=== PATIENT | female | born 1945 | race Caucasian/White ===

== ENCOUNTER → 2016-07-28 | Outpatient (CLI) | payer OTHER ==
--- NOTE | 2016-07-28 15:55 | CT ---
CT of the Right Hip, Right Knee, and Right Ankle, Without Contrast, With Multiplanar Reconstructions History: M17.9, osteoarthritis right knee, pain. EVANGELINA preop study. Technique: Noncontrast axial computed tomographic images of the hip, knee, and ankle, with multiplan ar reconstructions. CT Dose reduction techniques utilized. Comparison: None. Findings: No significant degenerative changes of the the right hip or right ankle. The right knee demonstrates severe medial tibiofemoral joint space narrowing, with subchondral sclero sis, complete loss of joint space, medial femoral condyle and medial tibial plateau osteophytes. Sma ll lateral femoral condyle and lateral tibial plateau osteophytes, without significant joint space na rrowing laterally. Mild patellofemoral joint space narrowing, with circumferential patellar and troc hlear osteophytes. Impression: Right knee severe osteoarthritis of the medial tibiofemoral compartment.
== END ==
LOC: FIMAGING 14:38
PROVIDERS: ATTEND Orthopaedic Surgery
DX: Z01.818 Encounter for other preprocedural examination (principal); M17.11 Unilateral primary osteoarthritis, right knee

== ENCOUNTER 2016-08-11 05:47 | Observation (INO) | payer OTHER ==
[2016-08-11] MEDS ORDERED: TRANEXAMIC ACID 3,000 MG in NS 50 ML IRR ONE (06:00)
[2016-08-11] MEDS ORDERED: CHLORHEXIDINE GLUC HIBICLENS 118 ML BTL TP ONE (06:00)
[2016-08-11] MEDS ORDERED: FAMOTIDINE 20 MG TAB PO ONE (06:00)
[2016-08-11] MEDS ORDERED: ACETAMINOPHEN 325 MG TAB PO ONE (06:00)
[2016-08-11] MEDS ORDERED: ROPI/epiNEPH/KETOROLAC JOINT COCKTAIL IU ONE (06:00)
[2016-08-11] MEDS ORDERED: CEFAZOLIN 2 GM/DEXTR 100 ML IV ONE (06:00)
[2016-08-11] MEDS ORDERED: DEXAMETHASONE 4 MG/ML VIAL IVP ONE (06:00)
[2016-08-11] MEDS ORDERED: LIDOCAINE 1% 5 ML SDV ONE (06:20)
[2016-08-11] MEDS ORDERED: LIDOCAINE 1% 5 ML SDV ID PRN (06:24)
[2016-08-11] MEDS ORDERED: LR 1,000 ML IV ONE (06:24)
[2016-08-11] MEDS ORDERED: VANCOMYCIN 1 GM VIAL IV ONE (06:31)
[2016-08-11] MEDS ORDERED: TRANEXAMIC ACID 3,000 MG/50 ML BAG IRR ONE (06:31)
[2016-08-11] MEDS ORDERED: SKIN ADHESIVE (DERMABOND) 1 EACH TP ONE (06:31)
[2016-08-11] MEDS ORDERED: MIDAZOLAM 2 MG/2 ML VIAL ONE (07:00)
[2016-08-11] MEDS ORDERED: PROPOFOL/EMULSION 500 MG/50 ML BOTTLE IV ONE (07:03)
[2016-08-11] MEDS ORDERED: fentaNYL 100 MCG/2 ML INJ ONE ×2 (07:03→08:47)
[2016-08-11] MEDS ORDERED: MAGNESIUM HYDROXIDE 30 ML UDCUP PO PRN (07:08)
[2016-08-11] MEDS ORDERED: PHARMACY PAIN CONSULT 1 EA MISC PRN (07:08)
[2016-08-11] MEDS ORDERED: ONDANSETRON 4 MG/2 ML VIAL IVP PRN (07:08)
[2016-08-11] MEDS ORDERED: POLYETHYLENE GLYCOL 3350 17 GM PKT PO PRN (07:08)
[2016-08-11] MEDS ORDERED: PROMETHAZINE HCL 25 MG/ML INJ IVP PRN (07:08)
[2016-08-11] MEDS ORDERED: TEMAZEPAM 15 MG CAP PO PRN (07:08)
[2016-08-11] MEDS ORDERED: DIPHENOXYLATE/ATROPINE LOMOTIL 1 TAB PO PRN (07:08)
[2016-08-11] MEDS ORDERED: CYCLOBENZAPRINE 10 MG TAB PO PRN (07:08)
[2016-08-11] MEDS ORDERED: diphenhydrAMINE 25 MG CAP PO PRN (07:08)
[2016-08-11] MEDS ORDERED: LACTULOSE 20 GM/30 ML UDCUP PO PRN (07:08)
[2016-08-11] MEDS ORDERED: PROMETHAZINE HCL 25 MG SUPPR PR PRN (07:08)
[2016-08-11] MEDS ORDERED: oxyCODONE IR 5 MG TAB PO PRN (07:08)
[2016-08-11] MEDS ORDERED: ONDANSETRON DISINTEGRATING 4 MG TAB PO PRN (07:08)
[2016-08-11] MEDS ORDERED: BISACODYL 10 MG SUPP PR PRN (07:08)
[2016-08-11] MEDS ORDERED: METOCLOPRAMIDE 10 MG/2 ML VIAL IVP PRN (07:08)
[2016-08-11] MEDS ORDERED: BUPIVACAINE/EPI 0.25% 30 ML SDV ONE (07:30)
[2016-08-11] MEDS ORDERED: LR 1,000 ML IV SCH (07:30)
[2016-08-11] MEDS ORDERED: ONDANSETRON 4 MG/2 ML VIAL ONE ×2 (07:33→08:47)
[2016-08-11] MEDS ORDERED: LIDOCAINE 2% JELLY 5 ML TUBE ONE (07:33)
[2016-08-11] MEDS ORDERED: DEXAMETHASONE 4 MG/ML VIAL ONE (07:33)
--- NOTE | 2016-08-11 08:28 | POSTOPPROG ---
Post Op Note Date of Operation: 08/11/16 Surgeon: Lexi Evans Director Chemistry: moi evans Anesthesiologist: dr. thurston Anesthesia: Spinal, Other (Specify) (adductor canal block) Pre-op Diagnosis: right medial knee OA Post-op Diagnosis: same Indication: right knee pain due to OA that failed conservative measures Procedure: R med partial knee arthroplasty Findings: severe medial knee OA Inf/Abcess present in the surg proc area at time of surgery?: No EBL: 50-100
[2016-08-11] MEDS ORDERED: HYDROmorphONE/DILAUDID 1 MG/ML SYR ONE (08:47)
[2016-08-11] MEDS ORDERED: oxyCODONE IR 5 MG TAB ONE (08:47)
--- NOTE | 2016-08-11 10:01 | DX ---
Two Views Right Knee: Reason for examination: Postoperative followup. Findings: Postoperative changes of partial right knee arthroplasty are noted in the medial compartmen t. The hardware is intact. The bone alignment is satisfactory and no complicating process is seen. Impression: Status post recent partial right knee arthroplasty.
[2016-08-11] MEDS: ACETAMINOPHEN 325 MG TAB PO SCH ×2 (12:22→17:51)
[2016-08-11] MEDS: SENNOSIDES/DOCUSATE SODIUM TAB PO SCH ×2 (13:19→21:41)
[2016-08-11] MEDS ORDERED: ceFAZolin 2 GM/DEXTROSE 100 ML IV SCH (14:00)
[2016-08-11] MEDS: ceFAZolin 2 GM in D5W 100 ML IV SCH ×2 (14:55→21:42)
[2016-08-11] MEDS: FAMOTIDINE 20 MG TAB PO SCH (21:41)
[2016-08-11] MEDS: ASPIRIN 325 MG TAB PO SCH (21:48)
[2016-08-12] MEDS: ACETAMINOPHEN 325 MG TAB PO SCH ×3 (01:21→10:32)
[2016-08-12 05:23] LABS: HEMATOCRIT 37.9 % (38.0-47.0); HEMOGLOBIN 12.4 g/dL (12.6-16.3)
[2016-08-12 07:52] VITALS: RESP 18
--- NOTE | 2016-08-12 09:27 | SOAPPROG ---
SOAP Progress Note Assessment/Plan: Assessment: Patient is doing well POD 1 s/p R med MPL 1.Pain management: pain is well controlled on oral pain meds 2.Anemia: level is expected initially postop. Asymptomatic. Cont to monitor for symptoms 3.VTE ppx: recommend aspirin 325mg daily. Cont TIFFANIE zelaya and SCD 4. d/c planning: d/c to home today pending release from PT. 5. postop urinary retention: resolved today. Plan: 08/12/16 09:26 Subjective: Nazia is doing well this morning, denies SOB, chest pain and n/v. mild pain. Objective: Vital Signs Temp Pulse Resp BP Pulse Ox 36.8 C 59 L 18 107/57 L 97 08/12/16 07:51 08/12/16 07:51 08/12/16 07:51 08/12/16 07:51 08/12/16 07:51 Laboratory Results 08/12/16 05:18 08/11/16 08/12/16 08/13/16 05:59 05:59 05:59 Intake Total 2545 Output Total 1375 Balance 1170 RLE: incision dressing is clean and dry, NVI, +pf/df ICD10 Worksheet Patient Problems: Problems Problem Status Diagnosed Primary localized osteoarthritis of right knee Acute
[2016-08-12] MEDS: ASPIRIN 325 MG TAB PO SCH (10:34)
[2016-08-12] MEDS: SENNOSIDES/DOCUSATE SODIUM TAB PO SCH (10:35)
[2016-08-12] MEDS: FAMOTIDINE 20 MG TAB PO SCH (10:35)
--- NOTE | 2016-08-12 10:51 | GDS ---
[f rep st] DISCHARGE SUMMARY ADMISSION DIAGNOSIS: Right knee osteoarthritis. DISCHARGE DIAGNOSIS: Right knee osteoarthritis. PROCEDURE: Right partial knee arthroplasty, partial knee, medial compartment, robot assisted. VTE PROPHYLAXIS: Aspirin recommended for 3 weeks daily. BRIEF DESCRIPTION OF HOSPITAL STAY: Patient was admitted for an elective joint arthroplasty. The pa luz maria tolerated the procedure well and has passed physical therapy. The patient was given appropriat e antibiotic prophylaxis and venous thromboembolism prophylaxis. The patient's pain was well control led on oral pain medication, patient was holding down food, and had urinated. Decision was made to d ischarge the patient. The patient was given post-operative prescriptions pre-operatively. PLAN: Please follow up as scheduled at Dr. Arias's office on August 31 at 9:30 a.m. /[id number]/MODL
--- NOTE | 2016-08-12 11:32 | GOP ---
[f rep st] OPERATIVE REPORT DATE OF OPERATION: 08/11/2016 SURGEON: Loco Arias MD NON DESTRUCTIVE EVALUATION TECHNICIAN: CALI Gao ANESTHESIA: Spinal. PREOPERATIVE DIAGNOSIS: Right knee osteoarthritis. POSTOPERATIVE DIAGNOSIS: Right knee osteoarthritis. PROCEDURE PERFORMED: Right medial compartment partial knee replacement with computer navigation and robotic assist. ESTIMATED BLOOD LOSS: 30 cc. FINDINGS/PATHOLOGY: Severe medial compartment osteoarthritis. INDICATIONS: This is a 71-year-old woman with severe and progressive pain and deformity of the right knee unresponsive to conservative care. The risks and benefits of surgical intervention were explained in detail. DESCRIPTION OF PROCEDURE: The patient was brought to the operating room and placed on the table in supine position. Spinal anesthesia was induced without difficulty. A pneumatic tourniquet was applied about the right proximal thigh and the leg was prepped and draped in sterile fashion. Attention was turned first to the distal aspect of the right femur. At 3 cm proximal to the lateral rise of the femur, 2 percutaneous half pins were placed for fixation of the femoral array. In a similar fashion, 2 pins were placed anterolateral on the tibia for fixation of the tibial array. External land marking and registration of the hip center was performed without difficulty. After exsanguination by elevation, the tourniquet was inflated to 250 mmHg. Incision was made from the tibial tuberosity to the superior pole of the patella. Dissection was carried out through the subcutaneous tissue to the deep fascia using Bovie electrocautery for hemostasis. Medial parapatellar arthrotomy was carried out to the superior pole of the patella. The medial collateral ligament was elevated and the infrapatellar fat pad was resected. Internal femoral and tibial registration was carried out without difficulty and the femoral and tibial checkpoints were placed and verified for accuracy. Attention was turned to the femur. The foot print for the size 3 femoral component was cut with the 6 mm bur using the [email or web address] robotic system and verified for accuracy against the CT based plan. The hole was cut for the femoral post. In a similar fashion, the 6 mm bur was used to cut the foot print for the size 4 tibial component using the JULES system and verified for accuracy against the CT based plan. Attention was turned to the posterior aspect of the knee and remnants of the medial meniscus were excised. The posterior capsule was injected with ropivacaine, epinephrine and Toradol. Trial reduction was carried out and there was excellent range of motion, alignment and stability using the size 3 femoral component and the size 4 tibial component, 4 x 8 polyethylene All trials were then removed. The joint was thoroughly irrigated and carefully dried. One package of cement and 1 gram of vancomycin were mixed in the vacuum mixer and placed on the fixation surfaces of all components. The components were implanted and all excess cement was thoroughly removed. Implant placement was verified against the CT view plan and found to be excellent. The tourniquet was deflated and all bleeders were coagulated. The wound was thoroughly irrigated and closed using interrupted sutures of 2-0 Vicryl for the joint capsule. The subcu was closed with 3-0 Vicryl and the skin with 4-0 Monocryl. Dermabond and Steri-Strips were applied, followed by a compressive dressing. The patient was then moved from the operating room to the recovery room in good condition, having tolerated the procedure well. CASE CLASSIFICATION: Clean. /[id number]/MODL MTDD
[2016-08-12 12:02] VITALS: BP 107/55; PULSE 61; TEMP 98.5; O2SAT 98
== END 2016-08-12 13:32 | disposition home or self-care (01) ==
LOC: INTOOBSV 05:47 → F3N 05:47
PROVIDERS: ADMIT Orthopaedic Surgery; ATTEND Orthopaedic Surgery
PROC: 0SRC0LZ Replacement of Right Knee Joint with Medial Unicondylar Synthetic Substitute, Open Approach (ICD-10-PCS; principal; 2016-08-11 07:15)
DX: M17.11 Unilateral primary osteoarthritis, right knee (principal)
CPT/HCPCS: 27446; 73560; 97110; 97116; 97161; 97165; C1713; C1776; G8978; G8979; G8980; G8987; G8988; G8989; J0171; J0690; J1100; J1170; J1885; J2250; J2405; J2704; J2795; J3010; J3370

== ENCOUNTER → 2016-10-25 | Outpatient (CLI) | payer OTHER | LOC: FIMAGING 11:08 | DX: Z12.31 Encounter for screening mammogram for malignant neoplasm of breast (principal) | CPT/HCPCS: G0202 ==

== ENCOUNTER → 2016-11-23 | Outpatient (CLI) | payer OTHER | LOC: FIMAGING 10:05 | PROVIDERS: ATTEND Orthopaedic Surgery | DX: M21.752 Unequal limb length (acquired), left femur (principal) ==

== ENCOUNTER → 2017-10-26 | Outpatient (CLI) | payer OTHER | LOC: FIMAGING 14:26 | PROVIDERS: ATTEND Nurse Practitioner Family | DX: Z12.31 Encounter for screening mammogram for malignant neoplasm of breast (principal) ==

== ENCOUNTER → 2018-11-15 | Outpatient (CLI) | payer OTHER, MEDICARE | LOC: FIMAGING 09:22 | PROVIDERS: ATTEND Nurse Practitioner Family | DX: Z12.31 Encounter for screening mammogram for malignant neoplasm of breast (principal); N64.89 Other specified disorders of breast ==

== ENCOUNTER → 2018-11-20 | Outpatient (CLI) | payer OTHER, MEDICARE | LOC: BRMIMAGING 13:43 | PROVIDERS: ATTEND Nurse Practitioner Family | DX: N60.19 Diffuse cystic mastopathy of unspecified breast (principal) | CPT/HCPCS: 76641-PO ==